=== PATIENT | female | born 1990 | race Caucasian/White ===

== ENCOUNTER → 2016-12-13 | Outpatient (CLI) | payer BC, OTHER ==
[2016-12-13 20:15] LABS: Basophils % (A) 0 %; CHCM 33.4; Eosinophils % (A) 1 %; HCT 39.5 % (34.0-46.0); HDW 2.47; Luc # (Auto) 0.13; Luc % (Auto) 3; Lymphocytes % (A) 37 %; MCH 28.6 pg (25.0-35.0); MCHC 32.9 g/dL (31.0-37.0); MCV 87.2 fL (80.0-100.0); Mean Platelet Volume 7.8; Monocytes # (A) 0.3 k/uL (0-1.0); Monocytes % (A) 5 %; Neutrophils % (A) 55 %; RBC 4.53 m/uL (3.80-5.40); RDW 12.3 % (11.5-15.5); WBC 5.4 k/uL (3.8-10.6); WBC (Perox) 5.89
[2016-12-13 20:27] LABS: ALT 28 U/L (9-52); AST 16 U/L (14-36); Alkaline Phosphatase 58 U/L (38-126); Anion Gap 10 mmol/L; Blood Urea Nitrogen 8 mg/dL (7-17); Calcium 9.6 mg/dL (8.4-10.2); Carbon Dioxide 22 mmol/L (22-30); Chloride 108 mmol/L (98-107); Glucose 105 mg/dL (74-99); Iron 67 ug/dL (37-170); Non-African American GFR(MDRD) >60 (>60 ml/min/1.73 sqM); Potassium 4.1 mmol/L (3.5-5.1); Sodium 140 mmol/L (137-145); Total Bilirubin 0.4 mg/dL (0.2-1.3); Total Protein 7.3 g/dL (6.3-8.2)
[2016-12-13 20:37] LABS: % Iron Saturation 20.6 % (20-50); Total Iron Binding Capacity 325 ug/dL (265-497)
[2016-12-15 06:03] LABS: EBV - VCA (IgG) 67.8 U/mL (<18.0); EBV - VCA IgM <10.0 U/mL (<36.0)
== END | disposition home or self-care (01) ==
LOC: MMGSC 15:30
PROVIDERS: ATTEND Family Medicine
DX: R53.83 Other fatigue (principal)
CPT/HCPCS: 36415; 80053; 82728; 83540; 83550; 84439; 84443; 85025; 86308; 86665

== ENCOUNTER → 2017-04-30 | Outpatient (CLI) | payer OTHER | LOC: MMGSC 11:22 | PROVIDERS: ATTEND Family Medicine | DX: N76.0 Acute vaginitis (principal) | CPT/HCPCS: 87070; 87205 ==